=== PATIENT | female | born 1955 | race Caucasian/White ===

== ENCOUNTER 2022-04-25 13:21 | Outpatient (CLI) | payer OTHER | END 2022-04-25 13:22 | disposition home or self-care (01) | LOC: TBSIIMAG 13:21 | PROVIDERS: ATTEND Neurological Surgery | DX: M54.16 Radiculopathy, lumbar region (principal) | CPT/HCPCS: 72110 ==

== ENCOUNTER 2022-05-09 09:22 | Outpatient (CLI) | payer MEDICARE | END 2022-05-09 09:23 | disposition home or self-care (01) | LOC: TBSIIMAG 09:22 | PROVIDERS: ATTEND Neurological Surgery | DX: R51.9 Headache, unspecified (principal) | CPT/HCPCS: 70553; 82565 ==

== ENCOUNTER 2025-05-17 11:06 | Outpatient (CLI) | payer MEDICARE | END 2025-05-17 11:07 | disposition home or self-care (01) | LOC: MRI 11:06 | PROVIDERS: ATTEND Family Medicine Sports Medicine | DX: S46.011A Strain of muscle(s) and tendon(s) of the rotator cuff of right shoulder, initial encounter (principal); S46.211A Strain of muscle, fascia and tendon of other parts of biceps, right arm, initial encounter ==